=== PATIENT | male | born 1995 | race Caucasian/White ===

== ENCOUNTER 2018-06-26 02:12 | Emergency (ER) | payer OTHER ==
[~2018-06-26] VITALS: Ht 188 cm; Wt 80.9 kg
[2018-06-26 02:15] VITALS: BP 121/68
--- NOTE | 2018-06-26 02:33 | NUR ---
PT STATED THE DOG IS HIS OWN DOG, HE IS NOT FILING A REPORT WITH ANIMAL CONTROL, AND THERE IS NO CONCERN FOR RABIES.
== END 2018-06-26 03:05 | disposition home or self-care (01) ==
LOC: ED 03:00
DX: S00.87XA Other superficial bite of other part of head, initial encounter (principal); S00.272A Other superficial bite of left eyelid and periocular area, initial encounter; W54.0XXA Bitten by dog, initial encounter; Y93.89 Activity, other specified; Y92.009 Unspecified place in unspecified non-institutional (private) residence as the place of occurrence of the external cause; Y99.8 Other external cause status
CPT/HCPCS: 99283